=== PATIENT | male | born 1940 ===

== ENCOUNTER → 2022-06-16 02:20 | Outpatient (CLI) | payer OTHER, SELFPAY ==
--- NOTE | 2022-06-16 | DI.MRI_ITS ---
Exam(s) MR LUMBAR SPINE WO EXAM: MR LUMBAR SPINE WO CLINICAL HISTORY: [place] AUTH# [id number] LOW BACK PAIN RT SIDE RADICULOPATHY. TECHNIQUE: Multiplanar multisequence MRI of the Lumbar spine was performed. COMPARISON: There are no plain films available time this MRI interpretation FINDINGS: Five lumbar vertebrae are presumed. Conus medullaris is at normal level. There is no evidence of conus mass nor subjacent clumping of in trathecal nerve roots to suggest arachnoiditis. The distal thecal sac appears unremarkable.There is no evidence of Tarlov intrasacral cysts nor other significant findings within the sacral canal Bones:There are no fractures nor ominous osseous lesions in the lumbar vertebral bodies and visualize d sacrum. With respect to the individual levels... T12-L1: Unremarkable L1-2: Normal disc height and signal. No prominent disc herniation. Central canal dimensions are lowe r normal.No foraminal stenosis. Mild facet degenerative changes. L2-3: There is decreased disc height on the right side of this disc space relative preservation of di sc height on the left side. There is annular bulging. This extends into the floor of the exiting le ft neural foramen. Central canal dimensions are lower normal. No left-sided foraminal stenosis. Th ere is moderate right-sided foraminal stenosis at this level due to a combination of bulging annulus, short AP dimensions the pedicles, degenerative changes in the facet joints, and preferential disc he ight loss on the right side of this disc space. L3-4: This level also exhibits disc height loss on the right side with relative preservation of disc height on the left side. There is broad annular bulging. Mild central canal stenosis. Left foramen patent. Right foramen exhibits moderate foraminal stenosis, similar to L2-3 level. There is only m ild foraminal stenosis on the left side at this level.. L4-5: Relatively preserved disc height signal. There is no disc herniation at this level but there i s an element of mild anterolisthesis of L4 upon L5 due to facet arthropathy (which is more prominent on the left than the right facet at this level. There is moderate-severe central spinal canal stenos is at this level. This is related to the listhesis, short AP dimensions the pedicles and advanced fa cet arthropathy bilaterally at this level. There is mild foraminal stenosis on the right side. No o bvious foraminal stenosis on the left side at this level. L5-S1: This level exhibits more preferential disc height loss on the left side with relative preserva tion of disc height on the right side. There is some annular bulging but without a dominant disc her niation. There is moderate central spinal canal stenosis. There is severe left-sided foraminal sten osis due to disc height loss, short AP dimensions the pedicles and facet arthropathy which is more pr ominent on the left than the right side at this level. There is almost no foraminal stenosis on the right side at this level due to the disc height preservation. Soft tissues: 2 adjacent cysts are noted in the lateral cortex of the left kidney. These both measu re approximately 2.5 cm size. IMPRESSION: 1. Multilevel findings as described individually above. 2. Most significant central spinal canal stenosis (moderate-severe) is at L4-5 level due to the degen erative anterolisthesis, short AP dimensions the pedicles and advanced bilateral facet arthropathy at this level. 3. Asymmetric foraminal stenosis due to asymmetric disc height loss different levels. There is an el ement of foraminal stenosis on the right side L3-4 and L4-5 levels and on the left side at L5-S1 rajan lópez. DATA REPOSITORY:
== END ==
PROVIDERS: Visit Provider Nurse Practitioner Family
DX: M54.59 Other low back pain (principal); M54.16 Radiculopathy, lumbar region; M43.16 Spondylolisthesis, lumbar region; M48.062 Spinal stenosis, lumbar region with neurogenic claudication
CPT/HCPCS: 72148